=== PATIENT | female | born 1965 | race Caucasian/White ===

== ENCOUNTER 2019-07-06 20:43 | Emergency (ER) | payer BC ==
[2019-07-06] MEDS ORDERED: Zofran 4 MG/2 ML VIAL IV ONE (20:51)
[2019-07-06] MEDS ORDERED: Sodium Chloride 0.9% 1000 ML 1,000 ML IV STA (20:51)
[2019-07-06] MEDS ORDERED: BABY ASPIRIN 81 MG CHEW PO ONE (20:51)
[2019-07-06] MEDS ORDERED: SUBLIMAZE 100 MCG/2 ML IV ONE (20:51)
[2019-07-06] MEDS ORDERED: BABY ASPIRIN 81 MG CHEW ONE (20:58)
[2019-07-06] MEDS ORDERED: Zofran 4 MG/2 ML VIAL ONE (20:58)
[2019-07-06] MEDS ORDERED: Sodium Chloride 0.9% 1000 ML 1,000 ML ONE (20:59)
[2019-07-06] MEDS ORDERED: SUBLIMAZE 100 MCG/2 ML ONE (20:59)
[2019-07-06 21:20] LABS: BASOPHIL % 0.1 % (0.0-0.4); Basophil (Absolute #) 0.02 (0-0.4); Eosinophil % 1.9 % (0.00-5.0); Eosinophil (Absolute #) 0.29 (0-0.5); Hemoglobin 11.3 gm/dl (12.0-16.0); Lymphocyte (Absolute #) 3.44 (1.0-4.6); Lymphocytes % 22.5 % (24.0-44.0); Mean Cell Volume 88.6 fl (78-100); Mean Corpuscular Hemoglobin 28.6 pg (26-32); Mean Corpuscular Hgb Concent. 32.3 g/dl (32-36); Mean Platelet Volume 10.8 fl (7.5-11.0); Monocyte (Absolute #) 1.31 (0.0-1.3); Monocytes % 8.6 % (0.0-12.0); Neutrophil % 66.9 % (36.0-66.0); Platelet Count 347 K/mm3 (150-450); Red Blood Count 3.95 M/mm3 (4.1-5.4); Red Cell Distribution Width 15.5 % (11.5-14.0); White Blood Count 15.3 K/mm3 (4.0-10.5)
[2019-07-06 21:26] LABS: INR 1.03 (0.8-3.0); PROTIME 11.6 SECONDS (9.95-12.35)
[2019-07-06 21:29] LABS: PTT 30.3 SECONDS (25.3-37.0)
[2019-07-06 21:42] LABS: ALBUMIN 3.8 g/dL (3.5-5.0); ALKALINE PHOSPHATASE 85 U/L (38-126); ANION GAP 14.1 MEQ/L (5-15); BLOOD UREA NITROGEN 12 mg/dL (7-17); CHLORIDE 105 mmol/L (98-107); Calcium 8.8 mg/dL (8.4-10.2); Carbon Dioxide 25 mmol/L (22-30); Glucose 113 mg/dL (74-106); NT PRO BNP 25.3 pg/mL (0-900); Potassium 3.7 mmol/L (3.5-5.1); SGOT/AST 18 U/L (14-36); SGPT/ALT 12 U/L (0-35); SODIUM 140 mmol/L (137-145); Total Protein 7.1 g/dL (6.3-8.2)
[2019-07-06 21:51] LABS: D-DIMER QUANTITATIVE < 215 ng/mL (215-500)
[2019-07-06 23:11] LABS: Appearance SLIGHTLY CLOUDY (CLEAR); Bacteria RARE /HPF (NEGATIVE); Bilirubin NEGATIVE (NEGATIVE); Blood NEGATIVE Ery/ul (0-5); Glucose NEGATIVE (NEGATIVE); Ketones NEGATIVE (NEGATIVE); Leukocyte Esterase NEGATIVE (NEGATIVE); Mucus SLIGHT /HPF (NEGATIVE); Nitrite NEGATIVE (NEGATIVE); Protein,Urine Dip NEGATIVE (Negative); Specific Gravity 1.026 (1.005-1.025); Urobilinogen NEGATIVE mg/dL (0-1)
--- NOTE | 2019-07-06 23:48 | ERPHSYRPT ---
- History of Present Illness Time Seen by Provider: 07/06/19 20:55 Patient Subjective Stated Complaint: pt c/o chest pain but describes it as a band going underneath her breasts. Triage Nursing Assessment: pt is poor historian. pt c/o c/p that goes underneath her breasts, radiates to back. Lungs clear, heart tones reg/tachy. Abd lg/soft with active bs x4 quad, nontender. Pt c/o lt sided abd pain and pain to lt lower back. Pt c/o nausea, no vomiting. Pt states, "I've been around my nephew whos had the flu and I've been really tired lately". Physician History: patient is a 52 units white female who presents with a complaint of pain in the epigastric and lower anterior chest area. This started earlier today. She states that she was not really very active at the time of onset and it seemed worse after she had a meal. She denies any shortness of breath she has had some nausea no vomiting no diaphoresis cardiac risk factors are positive for hypertension and family history otherwise negative. The pain is bilateral more on the right side beneath both breasts. Timing/Duration: today Activities at Onset: none Quality: cramping, stabbing Abdominal Pain Onset Location: RUQ, epigastric Pain Radiation: no radiation Severity of Pain-Max: moderate Severity of Pain-Current: moderate (rates her pain 4-5/10) Modifying Factors: Improves With: eating Associated Symptoms: denies symptoms Allergies/Adverse Reactions: Sulfa (Sulfonamide Antibiotics) Allergy (Mild, Verified 07/06/19 21:06) Home Medications: Cholecalciferol (Vitamin D3) [Vitamin D] 7,000 unit PO DAILY 03/06/18 [ History] Ferrous Sulfate 325 mg [Feosol 325 mg] 325 mg PO DAILY 03/06/18 [History] Lisinopril 10 mg [Zestril 10 MG] 10 mg PO DAILY 07/06/19 [History] Metformin HCl 500 mg [Glucophage 500 MG] 1,000 mg PO BID 07/06/19 [History ] Hx Tetanus, Diphtheria Vaccination/Date Given: No Hx Influenza Vaccination/Date Given: No Hx Pneumococcal Vaccination/Date Given: No Immunizations Up to Date: No - Review of Systems Constitutional: No Fever, No Chills Eyes: No Symptoms Ears, Nose, & Throat: No Symptoms Respiratory: No Cough, No Dyspnea Cardiac: No Chest Pain, No Edema, No Syncope Abdominal/Gastrointestinal: Abdominal Pain, Nausea, No Vomiting, No Diarrhea Genitourinary Symptoms: No Dysuria Musculoskeletal: No Back Pain, No Neck Pain Skin: No Rash Neurological: No Dizziness, No Focal Weakness, No Sensory Changes Psychological: No Symptoms Endocrine: No Symptoms All Other Systems: Reviewed and Negative - Past Medical History Pertinent Past Medical History: Yes Neurological History: No Pertinent History ENT History: No Pertinent History Cardiac History: Angina Respiratory History: Bronchitis Endocrine Medical History: Other Musculoskeletal History: No Pertinent History GI Medical History: No Pertinent History History: No Pertinent History Psycho-Social History: No Pertinent History Female Reproductive Disorders: No Pertinent History Other Medical History: nodule to thyroid, metabolic syndrome - Past Surgical History Past Surgical History: Yes Neuro Surgical History: No Pertinent History Cardiac: No Pertinent History Respiratory: No Pertinent History Gastrointestinal: Exploratory Laparoscopy Genitourinary: No Pertinent History Musculoskeletal: No Pertinent History Female Surgical History: Section Other Surgical History: cysts removed from breasts. colonoscopy - Social History Smoking Status: Former smoker Exposure to second hand smoke: No Drug Use: none - Female History Hx Last Menstrual Period: may, 2019 - Nursing Vital Signs Nursing Vital Signs: Initial Vital Signs Temperature 97.8 F 07/06/19 20:50 Pulse Rate 105 H 07/06/19 20:50 Respiratory Rate 17 07/06/19 20:50 Blood Pressure 134/83 07/06/19 20:50 O2 Sat by Pulse Oximetry 97 07/06/19 20:50 Pain Scale Pain Intensity 0 - Physical Exam General Appearance: mild distress, alert Eye Exam: PERRL/EOMI, eyes nml inspection Ears, Nose, Throat Exam: normal ENT inspection, pharynx normal, moist mucous membranes Neck Exam: normal inspection, non-tender, supple, full range of motion Respiratory Exam: normal breath sounds, lungs clear, No respiratory distress Cardiovascular Exam: regular rate/rhythm, normal heart sounds Gastrointestinal/Abdomen Exam: soft, normal bowel sounds, tenderness ( tenderness in the right upper quadrant with a positive Shultz sign), No mass Back Exam: normal inspection, normal range of motion, No CVA tenderness, No vertebral tenderness Extremity Exam: normal inspection, normal range of motion, pelvis stable Neurologic Exam: alert, oriented x 3, cooperative, normal mood/affect, nml cerebellar function, sensation nml, No motor deficits Skin Exam: normal color, warm, dry SpO2: 94 - Course Nursing assessment & vital signs reviewed: Yes EKG Interpreted by Me: RATE (102), Sinus Rhythm, NORMAL AXIS, NORMAL INTERVALS, NORMAL QRS - Radiology Exams Chest X-ray Interpretation: Interpreted by me, Negative - CT Exams Abdomen/Pelvis CT Interpretation: Tele-radiologist Report, Other (toe radiologist says gallstones without direct evidence of acute cholecystitis) Ordered Tests: Active Orders 24 hr Category Date Time Status Jewel Lathe Operator STAT Care 07/06/19 20:52 Active EKG-ER Only STAT Care 07/06/19 20:51 Active IV Insertion STAT Care 07/06/19 20:51 Active ABDOMEN AND PELVIS W CONTRAST [CT] Stat Exams 07/06/19 22:07 Taken CHEST 1 VIEW (PORTABLE) Stat Exams 07/06/19 20:52 Taken CBC W DIFF Stat Lab 07/06/19 21:18 Completed CMP Stat Lab 07/06/19 21:18 Completed D-DIMER QUANTITATIVE Stat Lab 07/06/19 21:18 Completed NT PRO BNP Stat Lab 07/06/19 21:18 Completed PROTIME WITH INR Stat Lab 07/06/19 21:18 Completed PTT Stat Lab 07/06/19 21:18 Completed TROPONIN Q3H Lab 07/06/19 21:18 Completed TROPONIN Q3H Lab 07/07/19 00:00 Ordered TROPONIN Q3H Lab 07/07/19 03:00 Ordered TROPONIN Q3H Lab 07/07/19 06:00 Ordered TROPONIN Q3H Lab 07/07/19 09:00 Ordered UA W/RFX UR CULTURE Stat Lab 07/06/19 23:02 Completed Medication Summary Discontinued Medications Generic Name Dose Route Start Last Admin Trade Name Freq PRN Reason Stop Dose Admin Aspirin 324 mg 07/06/19 20:51 07/06/19 21:07 Baby Aspirin 81 Mg Chew PO 07/06/19 20:52 324 mg STAT ONE Administration Aspirin Confirm 07/06/19 20:58 Baby Aspirin 81 Mg Chew Administered 07/06/19 20:59 Dose 324 mg .ROUTE .STK-MED ONE Fentanyl Citrate 50 mcg 07/06/19 20:51 07/06/19 21:06 Sublimaze 100 Mcg/2 Ml IV 07/06/19 20:52 50 mcg STAT ONE Administration Fentanyl Citrate Confirm 07/06/19 20:59 Sublimaze 100 Mcg/2 Ml Administered 07/06/19 21:00 Dose 100 mcg .ROUTE .STK-MED ONE Sodium Chloride 1,000 mls @ 999 mls/hr 07/06/19 20:51 07/06/19 22:07 Sodium Chloride 0.9% 1000 Ml IV 07/06/19 21:51 Infused .Q1H1M STA Infusion Sodium Chloride Confirm 07/06/19 20:59 Sodium Chloride 0.9% 1000 Ml Administered 07/06/19 21:00 Dose 1,000 mls @ ud .ROUTE .STK-MED ONE Ondansetron HCl 4 mg 07/06/19 20:51 07/06/19 21:06 Zofran 4 Mg/2 Ml Vial IV 07/06/19 20:52 4 mg STAT ONE Administration Ondansetron HCl Confirm 07/06/19 20:58 Zofran 4 Mg/2 Ml Vial Administered 07/06/19 20:59 Dose 4 mg .ROUTE .STK-MED ONE Lab/Rad Data: Laboratory Result Diagrams 07/06/19 21:18 07/06/19 21:18 Laboratory Results 07/06/19 07/06/19 07/06/19 Range/Units 23:02 21:18 21:18 WBC (4.0-10.5) K/mm3 RBC (4.1-5.4) M/mm3 Hgb (12.0-16.0) gm/dl Hct (35-47) % MCV (78-100) fl MCH (26-32) pg MCHC (32-36) g/dl RDW (11.5-14.0) % Plt Count (150-450) K/mm3 MPV (7.5-11.0) fl Gran % (36.0-66.0) % Eos # (Auto) (0-0.5) Absolute Lymphs (auto) (1.0-4.6) Absolute Monos (auto) (0.0-1.3) Lymphocytes % (24.0-44.0) % Monocytes % (0.0-12.0) % Eosinophils % (0.00-5.0) % Basophils % (0.0-0.4) % Absolute Granulocytes (1.4-6.9) Basophils # (0-0.4) PT 11.6 (9.95-12.35) SECONDS INR 1.03 (0.8-3.0) APTT 30.3 (25.3-37.0) SECONDS D-Dimer < 215 L (215-500) ng/mL Sodium (137-145) mmol/L Potassium (3.5-5.1) mmol/L Chloride (98-107) mmol/L Carbon Dioxide (22-30) mmol/L Anion Gap (5-15) MEQ/L BUN (7-17) mg/dL Creatinine (0.52-1.04) mg/dL Estimated GFR ML/MIN Glucose (74-106) mg/dL Calcium (8.4-10.2) mg/dL Total Bilirubin (0.2-1.3) mg/dL AST (14-36) U/L ALT (0-35) U/L Alkaline Phosphatase (38-126) U/L Troponin I < 0.012 (0.000-0.034) ng/mL NT-Pro-B Natriuret Pep (0-900) pg/mL Serum Total Protein (6.3-8.2) g/dL Albumin (3.5-5.0) g/dL Urine Color YELLOW (YELLOW) Urine Appearance SLIGHTLY CLOUDY (CLEAR) Urine pH 5.0 (5-6) Ur Specific [place] 1.026 (1.005-1.025) Urine Protein NEGATIVE (Negative) Urine Ketones NEGATIVE (NEGATIVE) Urine Blood NEGATIVE (0-5) Wilner/ul Urine Nitrite NEGATIVE (NEGATIVE) Urine Bilirubin NEGATIVE (NEGATIVE) Urine Urobilinogen NEGATIVE (0-1) mg/dL Ur Leukocyte Esterase NEGATIVE (NEGATIVE) Urine WBC (Auto) NONE (0-5) /HPF Urine RBC (Auto) NONE (0-2) /HPF U Epithel Cells (Auto) NONE (FEW) /HPF Urine Bacteria (Auto) RARE (NEGATIVE) /HPF Urine Mucus (Auto) SLIGHT (NEGATIVE) /HPF Urine Culture Reflexed NO (NO) Urine Glucose NEGATIVE (NEGATIVE) mg/dL 07/06/19 07/06/19 Range/Units 21:18 21:18 WBC 15.3 H (4.0-10.5) K/mm3 RBC 3.95 L (4.1-5.4) M/mm3 Hgb 11.3 L (12.0-16.0) gm/dl Hct 35.0 (35-47) % MCV 88.6 (78-100) fl MCH 28.6 (26-32) pg MCHC 32.3 (32-36) g/dl RDW 15.5 H (11.5-14.0) % Plt Count 347 (150-450) K/mm3 MPV 10.8 (7.5-11.0) fl Gran % 66.9 H (36.0-66.0) % Eos # (Auto) 0.29 (0-0.5) Absolute Lymphs (auto) 3.44 (1.0-4.6) Absolute Monos (auto) 1.31 H (0.0-1.3) Lymphocytes % 22.5 L (24.0-44.0) % Monocytes % 8.6 (0.0-12.0) % Eosinophils % 1.9 (0.00-5.0) % Basophils % 0.1 (0.0-0.4) % Absolute Granulocytes 10.20 H (1.4-6.9) Basophils # 0.02 (0-0.4) PT (9.95-12.35) SECONDS INR (0.8-3.0) APTT (25.3-37.0) SECONDS D-Dimer (215-500) ng/mL Sodium 140 (137-145) mmol/L Potassium 3.7 (3.5-5.1) mmol/L Chloride 105 (98-107) mmol/L Carbon Dioxide 25 (22-30) mmol/L Anion Gap 14.1 (5-15) MEQ/L BUN 12 (7-17) mg/dL Creatinine 0.60 (0.52-1.04) mg/dL Estimated GFR > 60.0 ML/MIN Glucose 113 H (74-106) mg/dL Calcium 8.8 (8.4-10.2) mg/dL Total Bilirubin 0.30 (0.2-1.3) mg/dL AST 18 (14-36) U/L ALT 12 (0-35) U/L Alkaline Phosphatase 85 (38-126) U/L Troponin I (0.000-0.034) ng/mL NT-Pro-B Natriuret Pep 25.3 (0-900) pg/mL Serum Total Protein 7.1 (6.3-8.2) g/dL Albumin 3.8 (3.5-5.0) g/dL Urine Color (YELLOW) Urine Appearance (CLEAR) Urine pH (5-6) Ur Specific [place] (1.005-1.025) Urine Protein (Negative) Urine Ketones (NEGATIVE) Urine Blood (0-5) Wilner/ul Urine Nitrite (NEGATIVE) Urine Bilirubin (NEGATIVE) Urine Urobilinogen (0-1) mg/dL Ur Leukocyte Esterase (NEGATIVE) Urine WBC (Auto) (0-5) /HPF Urine RBC (Auto) (0-2) /HPF U Epithel Cells (Auto) (FEW) /HPF Urine Bacteria (Auto) (NEGATIVE) /HPF Urine Mucus (Auto) (NEGATIVE) /HPF Urine Culture Reflexed (NO) Urine Glucose (NEGATIVE) mg/dL - Progress Progress: improved - Departure Departure Disposition: Home Clinical Impression: Biliary colic Condition: Stable Critical Care Time: No Referrals: MARIIA RIVAS [Primary Care Provider] - Prescriptions: Ondansetron HCl [Zofran] 4 mg PO TID PRN #10 tablet PRN Reason: Nausea/Vomiting PANTOPRAZOLE 40 mg Tablet [Protonix 40MG Tablet] 40 mg PO QAM 30 Days #30 tab
[2019-07-06 23:59] VITALS: BP 98/55; PULSE 82; O2SAT 98
--- NOTE | 2019-07-07 08:42 | XRAY ---
Indication: Pain and nausea. Elevated WBC. Multiple contiguous axial images obtained through the abdomen and pelvis using 80 cc Isovue 370 contrast. Comparison: None Lung bases are clear. Heart is not enlarged. Stomach is distended with food/fluid. Noncontrasted stomach and bowel loops appear nonobstructed. 2.5 cm descending duodenal diverticulum. Normal appendix. There is minimal proximal sigmoid diverticulosis. No free fluid/air. Gallbladder partially contracted with 2 gallstones, largest 9 mm. Remaining liver, pancreas, spleen, adrenal glands, kidneys, ureters, bladder, uterus, and aorta appear normal in CT appearance and attenuation. No pathologic retroperitoneal lymphadenopathy. Osseous structures intact with minimal L5-S1 disc space narrowing. No ventral or inguinal hernias. Impression: 1. Cholelithiasis. Gallbladder sonogram may yield further information if clinically warranted. 2. Incidental duodenal diverticulum and sigmoid diverticulosis. Comment: Preliminary interpretation was made by [facility]. No critical discrepancy.
--- NOTE | 2019-07-07 08:42 | XRAY ---
Indication: Chest pain. Comparison: April 30, 2016. Portable chest again demonstrates normal heart, lungs, and bony thorax with a few incidental calcified granulomas.
== END 2019-07-06 23:53 | disposition home or self-care (01) ==
LOC: ED 20:43
DX: K80.50 Calculus of bile duct without cholangitis or cholecystitis without obstruction (principal); R07.89 Other chest pain; R11.0 Nausea; R10.11 Right upper quadrant pain; R10.13 Epigastric pain; Z79.899 Other long term (current) drug therapy; Z79.84 Long term (current) use of oral hypoglycemic drugs
CPT/HCPCS: 36000; 36415; 71045; 74177; 80053; 81001; 83880; 84484; 85025; 85379; 85610; 85730; 93005; 93041; 96374; 96375; 99284; J2405; J3010; A9270-GY